=== PATIENT | female | born 1995 | race Caucasian/White ===

== ENCOUNTER 2025-05-02 14:12 | Emergency (ER) | payer OTHER, SELFPAY ==
[2025-05-02 14:16] VITALS: BP 123/71; PULSE 75; RESP 16; TEMP 36.6; O2SAT 100
[2025-05-02 14:50] VITALS: BP 102/63; PULSE 84; RESP 20; TEMP 36.7; O2SAT 100
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
[2025-05-02 17:58] LABS: BEDSIDEPREGUCG Positive (Negative)
[2025-05-02] MEDS: metroNIDAZOLE 500 MG TABLET PO (18:20)
[2025-05-02] MEDS: AZITHROMYCIN 250 MG TABLET 1000 MG PO (18:20)
[2025-05-02] MEDS: cefTRIAXone 0.5 GM, LIDOCAINE 1% LOCAL INJ 2.1 ML IM (18:24)
[2025-05-02 19:04] LABS: Add Urine Microscopic? YES; Appearance Urine Cloudy (Clear); Bacteria Urine None Seen /hpf; Bilirubin Urine Negative (Negative); Blood Urine Negative (Negative); Color Urine Yellow (Yellow); Glucose Urine UA Negative (Negative); Ketones Urine 3+ mg/dL (Negative); Leukocyte Esterase Ur Trace LEU/UL (Negative); Need Manual Microscopic Reviewed; Nitrate Urine Negative (Negative); Protein Urine Negative (Negative); RBC Urine 0-2 /hpf (0-2); Specific Grav Ur 1.022 (1.001-1.035); Squamous Epithelial Cell Urine Few /hpf (Few); Trichomonas Vag PCR NOT DETECTED (NOT DETECTE); WBC Urine 0-5 /hpf (0-3); pH Urine 5.5 (5.0-9.0)
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
[2025-05-02 19:29] LABS: Chlamydia trachomatis NOT DETECTED (NOT DETECTE); Neisseria gonorrhoeae PCR NOT DETECTED (NOT DETECTE)
[2025-05-02 19:39] VITALS: BP 107/73; PULSE 79; RESP 17; O2SAT 100
[2025-05-02 19:48] VITALS: BP 107/73; PULSE 79; RESP 17; O2SAT 100
== END 2025-05-02 19:50 | disposition home or self-care (01) ==
PROVIDERS: Emergency Provider Student in an Organized Health Care Education/Training Program
DX: O9A.412 Sexual abuse complicating pregnancy, second trimester (principal); Z3A.14 14 weeks gestation of pregnancy
CPT/HCPCS: 81001; 81025; 87491; 87591; 87661; 96372; 99285; A9270; J0696; J2003